=== PATIENT | male | born 1970 | race Caucasian/White ===

== ENCOUNTER 2018-04-21 08:41 | Emergency (ER) | payer OTHER ==
[2018-04-21 09:03] VITALS: BP 140/88
--- NOTE | 2018-04-21 09:11 | UC ---
Dental HPI - HPI Summary HPI Summary: Patient presents to urgent care with report of 24 hours progressive right-sided facial swelling. Patient states he has a broken tooth that previously, 8 years ago, had a root canal. Patient states he's been having some tooth pain for for 5 days. Patient's been using [id number] mouthwash and Anbesol with little improvement. Patient states last night which he was getting swollen worsened. Patient without a drooling. Patient returned a couple secretions. Patient states a little bit discomfort in his right ear. No fevers or chills. Patient has not called his dentist came here this morning when he swallowed it was. Patient does have a dentist, Dr. Baltazar. Patient is not inial, otherwise. Patient without any medication allergies. Patient without any other complaints. - History of Current Complaint Chief Complaint: UCDentalProblem Stated Complaint: TOOTH PAIN, FACIAL SWELLING Time Seen by Provider: 04/21/18 08:59 Pain Intensity: 2 - Allergies/Home Medications Allergies/Adverse Reactions: Allergies Allergy/AdvReac Type Severity Reaction Status Date / Time No Known Allergies Allergy Verified 04/21/18 08:48 Home Medications: Home Medications Acetaminophen [Acetaminophen Extra Strength] 1,000 mg PO SEE INSTRUCTIONS PRN [History Confirmed 04/21/18] diphenhydrAMINE HCl [Benadryl Allergy] 50 mg PO SEE INSTRUCTIONS 04/21/18 [ History Confirmed 04/21/18] PMH/Surg Hx/FS Hx/Imm Hx Previously Healthy: Yes - Surgical History Surgical History: Yes Surgery Procedure, Year, and Place: root canal 7 years ago - Family History Known Family History: Positive: Non-Contributory - Social History Occupation: Employed Full-time Alcohol Use: Occasionally Alcohol Amount: weekends 3-4 Substance Use Type: None Smoking Status (MU): Light Every Day Tobacco Smoker - Immunization History Most Recent Tetanus Shot: utd Review of Systems All Other Systems Reviewed And Are Negative: Yes Constitutional: Positive: Negative Skin: Positive: Negative Eyes: Positive: Negative ENT: Positive: Other - dental pain, facial swelling Physical Exam - Summary Physical Exam Summary: Vital Signs Reviewed: Yes A+Ox3, no distress Eyes: Conjunctiva Clear, TANIYA. EOM intact and full ENT: Hearing grossly normal TM x 2 clear, No TMJ Pain, + edema right check, inferior to zygomatic arch. mild warmth. no fluctuance mild TTP 4 - broken at gumline - pt with multiple caries, turbinates wnl mmoist, uvula midline, no exudate, no erythema, Neck: Positive: Supple Respiratory: Positive: No respiratory distress, No accessory muscle use + CTA throughout no w/r Cardiovascular: RRR nl s1, s2 no m/r CBT <2 sec abd soft + BS nt/nd no guarding, no distension Musculoskeletal Exam: SALGUERO x 4 without difficulty Strength Intact, ROM Intact Neurological: Positive: Alert, + sensation throughout Psychological: Positive: Normal Response To Family Skin: Positive: no rash, no ecchymosis, pt with small scabbed lesion at base of nose, right side at suprior nares - does not seem related to erythemam, edema in gumline Triage Information Reviewed: Yes Vital Signs: Initial Vital Signs Temp 98.5 F 04/21/18 08:52 Pulse 89 04/21/18 08:52 Resp 18 04/21/18 08:52 BP 140/88 04/21/18 08:52 Pulse Ox 96 04/21/18 08:52 Dental Complaint Course/Dx - Course Course Of Treatment: Patient with 4 days of right upper dental pain in 24 hours of right facial swelling. Patient without any airway compromise or edema. Patient can with broken #4 tooth with discomfort to palpation. Patient with a scab lesion on the right lateral aspect of his nose which seems distinct and separate from the facial swelling. We'll start patient on clindamycin to cover both dental as well as skin organisms. Peridex swish and spit. Patient to contact dentist today for prompt follow-up. Patient with strict return precautions. Patient comfortable and agreeable plan - Differential Dx/Diagnosis Provider Diagnosis: Dental abscess, Right facial swelling Discharge - Sign-Out/Discharge Documenting (check all that apply): Patient Departure All imaging exams completed and their final reports reviewed: No Studies - Discharge Plan Condition: Stable Disposition: HOME Prescriptions: Chlorhexidine MW 0.12% 473ML* [Peridex Mouth Wash 0.12%*] 15 ml SWISH SPIT Q6HR #1 btl Clindamycin Cap(NF) [Clindamycin Cap 300 mg Cap(NF)] 300 mg PO Q6H #30 cap Patient Education Materials: Dental Abscess (ED) Forms: *Work Release Referrals: Serg Elam MD [Primary Care Provider] - Additional Instructions: - Okay to alternate ibuprofen (Advil, Motrin)600mg and Tylenol 1000mg every 3 hours for pain. Take with food. Do NOT take for more than 4-5 days -Swish and spit with prescription mouth rinse 3 times a day -Take anitbiotics as prescribed until gone. These will likley cause diarrhea - eat yogurt or take pro-biotics to help with these symptoms -Stay well hydrated - - Contact your dentist today to schedule a follow-up appointment - Okay to apply ice pack to side of face - wrapped in a towel - If you develop increased pain, difficulty swallowing, fever, swelling down your neck or any other concerns it is recommended you go directly to the emergency department - Billing Disposition and Condition Condition: STABLE Disposition: Home
== END 2018-04-21 09:30 | disposition home or self-care (01) ==
LOC: UCEAST 08:41
DX: K04.7 Periapical abscess without sinus (principal); R22.0 Localized swelling, mass and lump, head; F17.200 Nicotine dependence, unspecified, uncomplicated
CPT/HCPCS: 99201; G0463